=== PATIENT | male | born 1960 | race American Indian/Alaskan Native ===

== ENCOUNTER 2018-08-13 14:26 | Emergency (ER) | payer OTHER ==
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
[2018-08-13] MEDS ORDERED: Sodium Chloride 0.9% 10 ML Syringe FLUSH PRN (14:38)
--- NOTE | 2018-08-13 15:03 | CT ---
Clinical history: 58-year-old male new onset seizure. No known trauma or drug abuse history. Scan technique: Volume acquisition of data emergency unenhanced CT scan of the head and brain obtained while the patient was lying supine on the Siemens multi slice scanner [place], [place]. All data archived in the PACS system for storage, reformatting axial/sagittal/coronal planes and study. Interpretation: Negative exam. 1. Uniformly thick bony calvarium without sign of pathologic skeletal lesion, skull fracture or underlying brain contusion. 2. Symmetric clear normal appearing paranasal and mastoid sinuses. No mucoperiosteal inflammation or tumor mass. 3. No abnormal extracerebral/intracranial epidural or subdural hematoma. 4. No supratentorial or posterior fossa mass lesion. No hydrocephalus. Physiologic midline and symmetric calcifications. 5. No focal areas of ischemic infarct or encephalomalacia. No intracranial arachnoid cyst. 6. No sign of acute intracerebral/intraventricular/subarachnoid bleed.
[2018-08-13 15:13] LABS: CHLORIDE,CL 101 mmol/L (101-111); SODIUM,NA 135 mmol/L (135-145)
--- NOTE | 2018-08-13 15:13 | CR ---
Clinical history: 58-year-old male new onset of seizure (syncopal episode?). Interpretation: Upright AP portable chest film unremarkable. Normal cardiac silhouette and bony thorax (external personnel monitor leads). No lung mass, hilar lymphadenopathy or focal lobar pneumonia. No atelectasis/collapse. No pneumothorax.
== END 2018-08-13 16:20 | disposition home or self-care (01) ==
LOC: DL.ED 14:26
DX: R56.9 Unspecified convulsions (principal); F17.210 Nicotine dependence, cigarettes, uncomplicated
CPT/HCPCS: 36415; 70450; 71045; 80053; 80305; 81001; 82550; 82962; 83615; 84484; 85025; 85379; 93005; 99285; G0480

== ENCOUNTER 2018-08-13 17:18 | Emergency (ER) | payer OTHER ==
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
== END 2018-08-13 18:30 ==
LOC: DL.ED 17:18
DX: R56.9 Unspecified convulsions (principal); R63.4 Abnormal weight loss
CPT/HCPCS: 99284

== ENCOUNTER 2019-12-05 14:15 | Emergency (ER) | payer OTHER ==
[2019-12-05] MEDS ORDERED: LORazepam 2 MG/ML SDV IVPUSH ONE ×3 (14:23→15:21)
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
[2019-12-05 15:05] LABS: ANION GAP 20.2 mEq/L (7-13)
[2019-12-05] MEDS ORDERED: Lidocaine 2% Jelly 10 ML Urojet MUCMEM ONE (15:40)
[2019-12-05] MEDS ORDERED: Lidocaine 2% Jelly 10 ML Urojet ONE (15:40)
[2019-12-05] MEDS ORDERED: Sodium Chloride 0.9% 1,000 ML IV ONE (15:59)
[2019-12-05] MEDS ORDERED: levETIRAcetam in NaCl (iso-os) 500 MG in Premix Bag 1 BAG IV ONE ×4 (16:00→16:15)
--- NOTE | 2019-12-05 16:58 | CT ---
EXAMINATION: Head wo Cont SEX: Male AGE: 59 years CLINICAL HISTORY: 59-year-old male with "seizures" and altered mental status reported on [address] scan of the head to have "suspicious appearance left temporal lobe" (MRI recommended). Scan technique: Volume acquisition of data emergency unenhanced CT scan of the head and brain obtained with the patient lying supine on the Siemens multislice scanner [place], [place]. Despite sedation and repeated attempts there is significant motion and positional artifact present. All data archived in the PACS system for storage, reformatting axial/sagittal/coronal planes and study. Interpretation: 1. Uniformly thick bony calvarium without sign of skull fracture, underlying brain contusion or epidural/subdural hematoma. Symmetric clear pneumatization of the paranasal and mastoid sinuses. 2. No supratentorial or posterior fossa mass effect. No shift of midline structures. No hydrocephalus. 3. Atrophy of the convexity. Microvascular ischemic changes. 4. No sign of acute intracerebral, intraventricular or subarachnoid bleed. CONCLUSION: Limited exam reveals no sign of skull fracture, intracranial mass or bleed.
== END 2019-12-05 18:28 ==
LOC: DL.ED 14:15
DX: G93.40 Encephalopathy, unspecified (principal); G40.909 Epilepsy, unspecified, not intractable, without status epilepticus; N36.8 Other specified disorders of urethra; R41.82 Altered mental status, unspecified; I10 Essential (primary) hypertension; Z88.5 Allergy status to narcotic agent; Z20.828 Contact with and (suspected) exposure to other viral communicable diseases; Z79.82 Long term (current) use of aspirin; Z79.899 Other long term (current) drug therapy
CPT/HCPCS: 36415; 70450; 80053; 84484; 85025; 87635; 93005; 96361; 96365; 96375; 96376; 99285; J1953; J2060; J7030; 99283; U0002

== ENCOUNTER 2020-11-22 16:11 | Emergency (ER) | payer OTHER ==
[2020-11-22] MEDS ORDERED: Lidocaine 1% 30 ML SDV INJECT ONE (16:22)
[2020-11-22] MEDS ORDERED: levETIRAcetam in NaCl (iso-os) 1,000 MG in Premix Bag 1 BAG IV ONE ×2 (16:23)
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
[2020-11-22] MEDS ORDERED: Lidocaine 1% with EPINEPHrine 1:100,000 20 ML MDV ONE (16:36)
[2020-11-22] MEDS ORDERED: Lidocaine 1% with EPINEPHrine 1:100,000 20 ML MDV INJECT ONE (16:42)
[2020-11-22 16:51] LABS: PTT,PARTIAL THROMBOPLSTIN TIME 25.5 SEC (22.0-34.0)
[2020-11-22 16:55] LABS: ANION GAP 16.2 mEq/L (7-13); CHLORIDE,CL 103 mmol/L (98-107); SODIUM,NA 140 mmol/L (136-145)
[2020-11-22 18:02] LABS: METHAMPHETAMINES,URINE NEGATIVE (NEGATIVE)
[2020-11-22 18:03] LABS: AMPHETAMINES,URINE NEGATIVE (NEGATIVE); BARBITURATES,URINE NEGATIVE (NEGATIVE); BENZODIAZEPINE,URINE NEGATIVE (NEGATIVE); MDMA (ECSTASY), URINE NEGATIVE (NEGATIVE); METHADONE,URINE NEGATIVE (NEGATIVE); OPIATES,URINE NEGATIVE (NEGATIVE); OXYCODONE,URINE NEGATIVE (NEGATIVE); PHENCYCLIDINE,URINE NEGATIVE (NEGATIVE); TCA,URINE NEGATIVE (NEGATIVE)
== END 2020-11-22 18:38 | disposition home or self-care (01) ==
LOC: DL.ED 16:11
DX: S01.412A Laceration without foreign body of left cheek and temporomandibular area, initial encounter (principal); I10 Essential (primary) hypertension; R56.9 Unspecified convulsions; Z79.82 Long term (current) use of aspirin; W25.XXXA Contact with sharp glass, initial encounter
CPT/HCPCS: 12014; 36415; 80053; 80305; 80307; 81001; 83605; 83735; 84484; 85025; 85610; 85730; 86140; 96365; 99284; J1953

== ENCOUNTER 2022-01-27 14:47 | Emergency (ER) | payer OTHER ==
[2022-01-27 15:02] LABS: AMPHETAMINES,URINE NEGATIVE (NEGATIVE); BARBITURATES,URINE NEGATIVE (NEGATIVE); BENZODIAZEPINE,URINE NEGATIVE (NEGATIVE); MDMA (ECSTASY), URINE NEGATIVE (NEGATIVE); METHADONE,URINE NEGATIVE (NEGATIVE); METHAMPHETAMINES,URINE NEGATIVE (NEGATIVE); OPIATES,URINE NEGATIVE (NEGATIVE); OXYCODONE,URINE NEGATIVE (NEGATIVE); PHENCYCLIDINE,URINE NEGATIVE (NEGATIVE); TCA,URINE NEGATIVE (NEGATIVE)
[2022-01-27 15:13] LABS: ANION GAP 14.1 mEq/L (7-13); CHLORIDE,CL 107 mmol/L (98-107); SODIUM,NA 143 mmol/L (136-145)
[2022-01-27 15:17] LABS: ESTIMATED GFR 73 mL/min (>=60)
[2022-01-27] MEDS: levETIRAcetam in NaCl (iso-os) 1,500 MG in Premix Bag 1 BAG IV ONE ×2 (15:20)
[2022-01-27] MEDS: LORazepam 2 MG/ML SDV IVPUSH ONE (16:00)
== END 2022-01-27 16:10 | disposition home or self-care (01) ==
LOC: DL.ED 14:47
DX: R56.9 Unspecified convulsions (principal); N30.01 Acute cystitis with hematuria; I10 Essential (primary) hypertension; Z79.899 Other long term (current) drug therapy
CPT/HCPCS: 36415; 70450; 80053; 80305; 80307; 81001; 82140; 83605; 83735; 84443; 85025; 86140; 87086; 93005; 96374; 96375; 99285; J1953; J2060; 93010; 99284